=== PATIENT | female | born 1945 | race Caucasian/White ===

== ENCOUNTER → 2018-05-02 07:48 | Outpatient (CLI) | payer OTHER, MEDICARE, SELFPAY ==
--- NOTE | 2018-05-02 07:51 | BI_ITS ---
MAMMOGRAPHY - BILATERAL SCREENING REASON FOR EXAM: Female, 73 years old. Routine annual screening examination. PERTINENT HISTORY: Non-contributory. TECHNIQUE: Digital bilateral breast monique (3D mammographic acquisition) in the CC and MLO projections. 2-D mediolateral oblique (MLO) and craniocaudad (CC) views of both breasts were obtained. CAD: Full Field Digital Mammography with Computer Added Detection was performed. COMPARISON: Comparison is made with prior study dated April 04, 2017 and January 09, 2015. FINDINGS: Breast Composition: There are scattered areas of fibroglandular density. There are no dominant masses or suspicious calcifications. No other significant abnormalities are identified. There has been no significant change since the prior study. BI/SCREENING MAMM (CAD), BILAT IMPRESSION: Stable bilateral screening mammogram. Yearly follow-up mammogram recommended. (A) ASSESSMENT CATEGORY: BIRADS Category 1: Negative. A letter regarding these results will be sent to the patient by the facility within 30 days. Approximately 10% of breast cancers are not detected by mammography. A normal mammogram should not delay biopsy of a clinically suspicious abnormality. [id number] Electronically Signed: Jorge Keene MD at 9:05 EDT Tel [phone], Service support ,
== END ==
PROVIDERS: Family Provider Family Medicine; PCP Family Medicine; Visit Provider Family Medicine
DX: Z12.31 Encounter for screening mammogram for malignant neoplasm of breast (principal)
CPT/HCPCS: 77063; 77067

== ENCOUNTER 2018-12-12 10:54 | Day surgery (SDC) | payer OTHER, MEDICARE, SELFPAY ==
--- NOTE | 2018-12-06 11:36 | EKG12_ITS ---
Test Reason : PREOP Blood Pressure : / mmHG Vent. Rate : 064 BPM Atrial Rate : 064 BPM P-R Int : 160 ms QRS Dur : 070 ms QT Int : 446 ms P-R-T Axes : 076 051 073 degrees QTc Int : 460 ms Sinus rhythm with marked sinus arrhythmia with occasional Premature ventricular complexes Otherwise normal ECG Confirmed by CECILLE CARTER, ADDIE ([id number]), deputy editor in chief FITO MANCINI ([id number]) on 12/11/2018 1:43:32 PM Referred By: Bhavna Barnhart Confirmed By:ADDIE ODEN MD
--- NOTE | 2018-12-06 12:33 | PCM.HPOB.BLA ---
History and Physical Date of Admission: 12/06/18 Name: ESTUARDO GARCIA Age: 73 HISTORY OF PRESENT ILLNESS: On 12/06/2018, Estuardo Garcia, a 73 year old female 2 0 0 0 2, presented for: -- Pre-Op Estuardo is here today for her pre op appointment. Patient is scheduled for anterior repair 12/12/2018. States that she has had PAT phone call from the hospital yesterday and will plan to have labs done today. Consents reviewed with patient and signed. jlb As above. Here for preop appt prior to planned anterior repair for apical cystocele. She is doing well. States she had phone PAT appt yesterday and they recommended an EKG Plans to go to [facility] for labs and EKG today. Prior hysterectomy. Has questions about return to usual activity. EB ALLERGIES: No Known Drug Allergies MEDICATIONS HISTORY: none. REVIEW OF SYSTEMS: GENERAL - Denies fever, or chills SKIN - Denies skin changes EYES - Denies visual changes EARS - Denies difficulty hearing NOSE - Denies nasal congestion or bleeding MOUTH - Denies sore throat or difficulty swallowing NECK - Denies pain or swelling RESPIRATORY - Denies shortness of breath or wheezing CARDIOVASCULAR - Denies palpitations or chest pain GASTROINTESTINAL - Denies nausea, vomiting, diarrhea, constipation GENITOURINARY - Denies dysuria, frequency of urination, incontinence of urine MUSCULOSKELETAL - Denies joint or muscle pain NEUROLOGICAL - Denies localized numbness or weakness PSYCHIATRIC - Denies depression or anxiety ENDOCRINE - Denies heat or cold intolerance, weight loss or gain HEMATO-IMMUNOLOGIC - Denies excessive bleeding with cuts PAST HISTORY: Breast/Ovarian/Colon Cancers - Denies Infections - Chicken pox and Measles Illnesses - Back pain Accidents - fell and had compression fx 2014? History of Abnormal PAPS - YES, cervical cancer-hysterectomy done Hospitalizations - see surgery SURGICAL HISTORY: 1. Hyst, for cervical cancer 2. Renal calculi surgery x2 MENSTRUAL HISTORY: LMP Known?- Prior Hysterectomy, Age Onset Menarche - 12 PAST PREGNANCIES: Total Pregnancies - 2; Full Term Pregnancies - 2; Premature - 0; Abortions, Induced - 0; Abortions, Spontaneous - 0; Ectopics - 0; Multiple Births - 0; Living Children - 2 FAMILY HISTORY: Father - Alzheimer's disease; Mother - Stroke; Brother - Neoplasm of lung; SOCIAL HISTORY: Alcohol Use - denies drinking Smoking - denies smoking Diet - moderate, balanced diet Lifestyle - Exercise - active Seat Belt Use - always Employer - [employer] Illicit Drug Use - denies use of street drugs Sexual Activity - Spouse-Sig Other Name - Sudha Spouse-Sig Other Occupation - [employer] Control - hyst PHYSICAL EXAMINATION BP- 124/78 Sitting, Right arm, regular cuff Temp- 97.9 Taken Orally Weight- 113.00 lbs Height- 58.00 inch BMI:23.67 CONSTITUTIONAL - NAD, well nourished, and well developed HEENT - Normocephalic, PERRLA, EOMI NECK - no nuchal rigidity LUNGS - clear to auscultation CARDIAC - normal s1, normal s2, no s3 EXTREMITIES - No edema or calf tenderness NEUROLOGICAL - Cranial nerves II-XII grossly intact PSYCHIATRIC - A and O to time, place, person, mood and affect DETAILED PELVIC EXAM External Genitial Vagina - non-tender without lesions Urethra/Urethral Meatus - non-tender, small urethral caruncle noted atrophic changes and UVJ appears well supported. Bladder - non-tender Vagina - pale pink with atrophic changes noted. anterior vaginal wall with apical cystocele. Cervix - surgically absent Uterus - surgically absent Adnexa - clear without massess or tenderness ASSESSMENT: 1. Cystocele, Unspecified 2. Routine Gynecologic Exam no abnormal findings PLAN BY DIAGNOSIS: 1. Cystocele, Unspecified Apical cystocele noted, midline. Good support of UVJ Small urethral caruncle. reviewed findings and options for additional treatment. Plans anterior repair. Reviewed R,B,A, Discussed anticipated preop, operative and postop recovery including activity restrictions. All questions answered and consents signed and on chart. PAT next. RTO in 2 wk for initial postop check.
[2018-12-12] VITALS (10 sets, daily range): BP systolic 96–176; BP diastolic 54–92; PULSE 62–78; RESP 16–18; TEMP 36.3–37.1; O2SAT 96–100; BMI 22.4; BMI 22.1
--- NOTE | 2018-12-12 12:33 | PCM.DC ---
- Discharge Diagnoses Current Active Problems: cystocele Reason(s) for Visit for Discharge Instructions: Anterior repair (cystocele repair) You will use the following diet at home:: No restrictions Discharge Activity: May not drive while taking narcotic pain medications., May Shower, May Take a Tub Bath Return to work on:: 01/14/19 May resume sexual activity in: 4-6 weeks Lifting Restrictions: limit lifting to under 20# for 4-6 wk to allow healing Additional Activity Instructions:: You may resume walking, stairs, sedentary work as comfortable. Be sure to move frequently in the first week to prevent blood clots in your legs after surgery. You may take Tylenol for milder pain, Add OxyIR if pain is more severe. You may also take either two Aleve or three Ibuprofen every 8 hrs for pain. Call your doctor if you observe: Fever of 101 or Higher, Using more than one pad per hour, Shortness of breath, Calf discomfort, Uncontrolled pain Allergies/Adverse Reactions: Allergies No Known Allergies Allergy (Verified 12/05/18 08:50) Medications to take at Discharge Calcium (Elemental) [Os-Gurdeep 500] 1,500 mg PO TID 05/07/14 Multivit-Min/FA/Lycopene/Lut [Centrum Silver Tablet] 1 each PO DAILY 05/07/14 Cholecalciferol (Vitamin D3) [Vitamin D3] 2,000 unit PO BID 12/05/18 Omeg3/Dha/Epa/Fish Oil/L.casei [Restora Capsule] 1 each PO DAILY 12/05/18 Oxycodone [Oxyir] 5 mg PO Q6H PRN PRN 3 Days #10 tablet 12/12/18 The following prescriptions were given: Oxycodone [Oxyir] 5 mg PO Q6H PRN PRN 3 Days #10 tablet PRN Reason: Mod-Severe Pain (4-05/16) Primary Care Physician: Quyen Adrian MD [Primary Care Provider] - Test Results: Test results from this visit will be discussed in further detail at your follow-up appointment, if applicable. Please Follow Up With: Bhavna Barnhart MD - [phone] When: 2 wk for postoperative check up Proposed Discharge Date: 12/13/18
--- NOTE | 2018-12-12 12:38 | DCINST_ITS ---
- Discharge Diagnoses Current Active Problems: cystocele Reason(s) for Visit for Discharge Instructions: Anterior repair (cystocele repair) You will use the following diet at home:: No restrictions Discharge Activity: May not drive while taking narcotic pain medications., May Shower, May Take a Tub Bath Return to work on:: 01/14/19 May resume sexual activity in: 4-6 weeks Lifting Restrictions: limit lifting to under 20# for 4-6 wk to allow healing Additional Activity Instructions:: You may resume walking, stairs, sedentary work as comfortable. Be sure to move frequently in the first week to prevent blood clots in your legs after surgery. You may take Tylenol for milder pain, Add OxyIR if pain is more severe. You may also take either two Aleve or three Ibuprofen every 8 hrs for pain. Call your doctor if you observe: Fever of 101 or Higher, Using more than one pad per hour, Shortness of breath, Calf discomfort, Uncontrolled pain Allergies/Adverse Reactions: Allergies No Known Allergies Allergy (Verified 12/05/18 08:50) Medications to take at Discharge Calcium (Elemental) [Os-Gurdeep 500] 1,500 mg PO TID 05/07/14 Multivit-Min/FA/Lycopene/Lut [Centrum Silver Tablet] 1 each PO DAILY 05/07/14 Cholecalciferol (Vitamin D3) [Vitamin D3] 2,000 unit PO BID 12/05/18 Omeg3/Dha/Epa/Fish Oil/L.casei [Restora Capsule] 1 each PO DAILY 12/05/18 Oxycodone [Oxyir] 5 mg PO Q6H PRN PRN 3 Days #10 tablet 12/12/18 The following prescriptions were given: Oxycodone [Oxyir] 5 mg PO Q6H PRN PRN 3 Days #10 tablet PRN Reason: Mod-Severe Pain (4-05/16) Primary Care Physician: Quyen Adrian MD [Primary Care Provider] - Test Results: Test results from this visit will be discussed in further detail at your follow- up appointment, if applicable. Please Follow Up With: Bhavna Barnhart MD - [phone] When: 2 wk for postoperative check up Proposed Discharge Date: 12/13/18
--- NOTE | 2018-12-12 13:18 | PCM.OPRPT ---
Report of Operation Date of Procedure: 12/12/18 Pre-Operative Diagnosis: cystocele Post-Operative Diagnosis: same Surgery/Procedure Performed:: anterior repair Description of Surgical Findings:: On exam under anesthesia. A mild apical cystocele was noted. Good support of the UVJ was noted. Prior hysterectomy. Good support at perineum and no rectocele or enterocele was noted. overhead crane inspector: Vania - Sierra Irby RN second assist overhead crane inspector: Gwendolyn Loera overhead crane inspector: Type of Anesthesia:: General Anesthesiologist: Miguel Ny Specimen's removed: vaginal epithelium Drains: Gallo Estimated Blood Loss (mL): 100 cc Fluids Replaced: LR Description of Procedure: Narrative account: After the risks, benefits and alternatives of the procedure were reviewed with the patient , informed consent was obtained. The patient was taken to the Operative room with an IV running . She was positioned in the dorsal supine position on the operating table and given general anesthesia. Once asleep she was positioned to the dorsal lithotomy position and prepped and draped in the usual sterile fashion. A Gallo catheter was inserted to drain the bladder and left open to drain in the drape. The weighted speculum was placed into the vagina and allis clamps were used to grasp the anterior vaginal mucosa at the vaginal angles. The vaginal mucosa was dissected from from the underlying pubovesical cervical fascia from the vaginal cuff to a point approximately 1 cm away from the urethra. Emma plication stitches of 1 Vicryl were placed, reducing the small cystocele. The anterior vaginal mucosa was trimmed and the anterior vaginal incision was then repaired with interrupted stitches of 2-0 chromic. Excellent hemostasis was noted. A vaginal packing was then inserted: 1 iodoform gauze Excellent hemostasis was noted. The Gallo was attached to the Gallo bag and clear yellow urine returned. The patient was returned to dorsal supine position and awakened from general anesthesia. She was then transferred to the recovery room bed in stable condition after tolerating the procedure well. Sponge, lap, needle and instrument counts were correct times two. Medications given preop and intraoperatively included: Cefotetan IV given manager of exhibitions and collections to the operating room . For a complete listing of medications given preop and intraoperatively, please see the anesthesia record. - Complications None - Admit VTE Documentation VTE Present on Admission: No VTE Mechan Device Prophylaxis: SCD's VTE Pharm Prophylaxis ordered?: Yes
--- NOTE | 2018-12-12 13:21 | OP.PCM_ITS ---
Report of Operation Date of Procedure: 12/12/18 Pre-Operative Diagnosis: cystocele Post-Operative Diagnosis: same Surgery/Procedure Performed:: anterior repair Description of Surgical Findings:: On exam under anesthesia. A mild apical cystocele was noted. Good support of the UVJ was noted. Prior hysterectomy. Good support at perineum and no rectocele or enterocele was noted. vocational evaluator: Vania - Sierra Irby RN second assist vocational evaluator: Gwendolyn Loera vocational evaluator: Type of Anesthesia:: General Anesthesiologist: Miguel Ny Specimen's removed: vaginal epithelium Drains: Gallo Estimated Blood Loss (mL): 100 cc Fluids Replaced: LR Description of Procedure: Narrative account: After the risks, benefits and alternatives of the procedure were reviewed with the patient , informed consent was obtained. The patient was taken to the Operative room with an IV running . She was positioned in the dorsal supine position on the operating table and given general anesthesia. Once asleep she was positioned to the dorsal lithotomy position and prepped and draped in the usual sterile fashion. A Gallo catheter was inserted to drain the bladder and left open to drain in the drape. The weighted speculum was placed into the vagina and allis clamps were used to grasp the anterior vaginal mucosa at the vaginal angles. The vaginal mucosa was dissected from from the underlying pubovesical cervical fascia from the vaginal cuff to a point approximately 1 cm away from the urethra. Emma plication stitches of 1 Vicryl were placed, reducing the small cystocele. The anterior vaginal mucosa was trimmed and the anterior vaginal incision was then repaired with interrupted stitches of 2-0 chromic. Excellent hemostasis was noted. A vaginal packing was then inserted: 1 iodoform gauze Excellent hemostasis was noted. The Gallo was attached to the Agllo bag and clear yellow urine returned. The patient was returned to dorsal supine position and awakened from general anesthesia. She was then transferred to the recovery room bed in stable condition after tolerating the procedure well. Sponge, lap, needle and instrument counts were correct times two. Medications given preop and intraoperatively included: Cefotetan IV given ship construction teacher to the operating room . For a complete listing of medications given preop and intraoperatively, please see the anesthesia record. - Complications None - Admit VTE Documentation VTE Present on Admission: No VTE Mechan Device Prophylaxis: SCD's VTE Pharm Prophylaxis ordered?: Yes
[2018-12-12] MEDS: Lactated Ringers 1,000 ML 125 ML IV ×2 (14:18→22:01)
[2018-12-12] MEDS: Acetaminophen 500 MG Tablet 1000 MG PO (15:32)
[2018-12-12] MEDS: Calcium (Elemental) 500 MG Tablet PO (18:48)
--- NOTE | 2018-12-12 20:59 | PCM.PROGNOTE ---
Subjective: Day of Surgery Anterior repair Up in chair. States minimal pain Took tylenol earlier. Reading paper, doing incentive spirometer. NAD - Physical Exam General: Alert, Oriented x3, Cooperative, No apparent distress HEENT: Atraumatic Neck: Supple Psych/Mental Status: Normal Affect Vital Signs Temp Pulse Resp BP Pulse Ox 98.8 F 69 16 110/56 L 100 12/12/18 20:00 12/12/18 20:00 12/12/18 20:00 12/12/18 20:00 12/12/18 20:00 Oxygen Delivery Method Room Air Weight: 49.759 kg Body Mass Index (BMI) 22.1 Intake and Output for Last 24 Hours 12/10/18 12/11/18 12/12/18 23:59 23:59 23:59 Intake Total 2020 / 2020 Output Total 1700 / 1700 Balance 321 / 321 Medical Necessity - Tobacco Use Smoking Status: Never smoker Tobacco Use: Non-smoker Assessment/Plan All Active Problems Screening for intestinal cancer (Acute) Day of surgery Anterior repair. Stable postop Continue care. vaginal packing in place, to be removed tomorrow. Plan to d/c [place] after vaginal packing removed.
[2018-12-13 02:20] VITALS: BP 147/89; PULSE 72; RESP 14; TEMP 36.7; O2SAT 96
[2018-12-13] MEDS: 0.9% NaCl Peripheral Flush Adult/Peds IV (02:24)
[2018-12-13] MEDS: Acetaminophen 500 MG Tablet 1000 MG PO (03:34)
--- NOTE | 2018-12-13 04:50 | PCM.PROGNOTE ---
Subjective: POD#1 Anterior repair Doing well. Poor sleep as another patient up frequently and talking. Pain control adequate. No concerns voiced. - Physical Exam General: Alert, Oriented x3, Cooperative, No apparent distress HEENT: Atraumatic, PERRLA, EOMI Neck: Supple Abdomen: Soft, Non Tender - vaginal packing removed. Minimal old dischg Extremities: No clubbing, No cyanosis, No edema Psych/Mental Status: Normal Affect Vital Signs Temp Pulse Resp BP Pulse Ox 98.1 F 72 14 147/89 H 96 12/13/18 02:20 12/13/18 02:20 12/13/18 02:20 12/13/18 02:20 12/13/18 02:20 Oxygen Delivery Method Room Air Weight: 49.759 kg Body Mass Index (BMI) 22.1 Intake and Output for Last 24 Hours 05//19 12/12/12/13/18 23:59 23:59 23:59 Intake Total 2020 / 2020 1202 / 1202 Output Total 1700 / 1700 1300 / 1300 Balance 321 / 321 -98 / -98 Medical Necessity - Tobacco Use Smoking Status: Never smoker Tobacco Use: Non-smoker Assessment/Plan All Active Problems Screening for intestinal cancer (Acute) POD#1 Anterior repair. Stable postop packing removed and minimal old blood noted. Gallo removed, voiding trial. Dischg home today.
[2018-12-13 05:54] LABS: Hemoglobin 12.1 g/dl (12.0-15.0); Mean Corp Hgb Conc 33.6 g/gl (32-36); Mean Corpuscular Hgb 29.2 pg (27.0-32.0); Mean Corpuscular Volume 86.7 fL (81-99); Platelet Count 168 K/mm3 (150-450); RBC Distribution Width CV 13.2 % (11.6-14.6); Red Blood Count 4.15 M/mm3 (4.2-5.4); White Blood Count 6.8 K/mm3 (4.4-11.0)
[2018-12-13 06:00] LABS: Scan Indicated on CBC? Y/N NO
[2018-12-13 07:59] VITALS: O2SAT 96
[2018-12-13 08:01] VITALS: BP 107/65; PULSE 68; RESP 16; TEMP 36.8; O2SAT 96
== END 2018-12-13 08:05 | disposition home or self-care (01) ==
LOC: SDC 10:55 → AC 10:56 → MS3 13:15
PROVIDERS: Family Provider Family Medicine; PCP Family Medicine; Referring Provider Obstetrics & Gynecology; Visit Provider Obstetrics & Gynecology
PROC: (CPT 57240; principal; 2018-12-12 12:15)
DX: N81.11 Cystocele, midline (principal); Z90.710 Acquired absence of both cervix and uterus
CPT/HCPCS: 57240; 36415; 85027; 93005; J7120; A4216; J2405

== ENCOUNTER → 2019-02-01 07:43 | Outpatient (CLI) | payer OTHER, MEDICARE, SELFPAY ==
[2018-12-12 14:41] VITALS: BMI 22.1
== END ==
LOC: LAB 07:46 → LABSPEC 07:47
PROVIDERS: Family Provider Family Medicine; PCP Family Medicine; Referring Provider Internal Medicine; Visit Provider Internal Medicine
DX: R19.7 Diarrhea, unspecified (principal)
CPT/HCPCS: 87177; 87209; 87493; 87506

== ENCOUNTER → 2019-04-22 16:34 | Outpatient (CLI) | payer OTHER, MEDICARE, SELFPAY ==
[2019-04-22 13:54] VITALS: BMI 22.1
--- NOTE | 2019-04-22 14:30 | LES_PTH ---
PATIENT: ESTUARDO GARCIA JANUARY LOC: [facility] U#:[id number] AGE/SX: 80/F ROOM: RE04/22/[address]: Dr. Mika Keating MD : [id number] BED: DIS: SPEC #: [id number] RECD: 04/22/19 14:57 STATUS: [place] JOSE L #: [id number] JULIO: 04/22/19 14:[address]: Mika Keating DEPT: SURGICAL PATHOLOGY RECD BY: Sameer Cornejo ENTERED: 04/23/19 11:31 SP TYPE: Lesion OTHR DR: Dr. Quyen Adrian MD Tissues: Skin of back, NOS Procedures: Surgery Specimen Level IV HEADER OPERATION: Shave biopsy skin lesion back PRE-OP DIAGNOSIS: Skin lesion back TISSUE SUBMITTED: Skin lesion mid left back MICROSCOPIC DIAGNOSIS Skin lesion mid back, biopsy: Fragments of superficial seborrheic keratosis. AM:jonathan 04/24/19 MICROSCOPIC DESCRIPTION Slides are reviewed. GROSS DESCRIPTION Received in fixative is one container labeled with the patient's name and designated skin lesion of mid left buttock. The specimen consists of multiple irregular fragments of light siddiqui soft tissue that in aggregate measure 0.5 x 0.5 x 0.2 cm. The specimen is totally submitted in one cassette. / AM:jonathan 04/23/19 TC:5 CPT: 11954
== END ==
PROVIDERS: Family Provider Family Medicine; PCP Family Medicine; Referring Provider Surgery; Visit Provider Surgery
DX: L98.9 Disorder of the skin and subcutaneous tissue, unspecified (principal)
CPT/HCPCS: 88305

== ENCOUNTER → 2019-05-20 10:19 | Outpatient (CLI) | payer OTHER, MEDICARE, SELFPAY ==
[2019-04-22 13:54] VITALS: BMI 22.1
--- NOTE | 2019-05-20 10:23 | BI_ITS ---
MAMMOGRAPHY - BILATERAL SCREENING REASON FOR EXAM: Female, 74 years old. Routine annual screening examination. PERTINENT HISTORY: Non-contributory. TECHNIQUE: Digital bilateral breast kofi (3D mammographic acquisition) in the CC and MLO projections. 2-D mediolateral oblique (MLO) and craniocaudad (CC) views of both breasts were obtained. CAD: Full Field Digital Mammography with Computer Added Detection was performed. COMPARISON: Comparison is made with prior study dated May 02, 2018 and March 25, 2017. FINDINGS: Breast Composition: There are scattered areas of fibroglandular density. There are no dominant masses or suspicious calcifications. No other significant abnormalities are identified. There has been no significant change since the prior study. BI/SCREEN MAMM (CAD) W/KOFI BILAT IMPRESSION: Stable bilateral screening mammogram. Yearly follow-up mammogram recommended. (A) ASSESSMENT CATEGORY: BIRADS Category 1: Negative. A letter regarding these results will be sent to the patient by the facility within 30 days. Stat report Approximately 10% of breast cancers are not detected by mammography. A normal mammogram should not delay biopsy of a clinically suspicious abnormality. [id number] Electronically Signed: Jorge Keene, at 11:28 EDT , Service support ,
== END ==
PROVIDERS: Family Provider Family Medicine; PCP Family Medicine; Referring Provider Family Medicine; Visit Provider Family Medicine
DX: Z12.31 Encounter for screening mammogram for malignant neoplasm of breast (principal)
CPT/HCPCS: 77063; 77067

== ENCOUNTER → 2019-10-11 11:17 | Outpatient (CLI) | payer MEDICARE, OTHER, SELFPAY ==
[2019-04-22 13:54] VITALS: BMI 22.1
[2019-10-11 12:50] LABS: Cholesterol 237 mg/dL (200); High Density Lipoprotein 114 mg/dL; Triglycerides 77 mg/dL; Very Low Density Lipoprotein 15 mg/dL (5-40)
== END ==
PROVIDERS: PCP Family Medicine; Referring Provider Family Medicine; Visit Provider Family Medicine
DX: E78.00 Pure hypercholesterolemia, unspecified (principal)
CPT/HCPCS: 36415; 80061

== ENCOUNTER → 2019-12-10 09:39 | Outpatient (CLI) | payer MEDICARE, OTHER, SELFPAY ==
[2019-04-22 13:54] VITALS: BMI 22.1
--- NOTE | 2019-12-10 09:47 | BD_ITS ---
STUDY: DUAL ENERGY X-RAY ABSORPTIOMETRY / DXA REASON FOR EXAM: Female, 74 years old. HUMAN RESOURCES HR GENERALIST- SURGICAL EARLY AT 33 YRS OLD D/T CERVICAL CANCER -- TAKES 1500MG CALCIUM + MULTIVITAMIN -- HX OF TAKING PROLIA -- DOES HIGH AMOUNT OF EXERCISE -- FAMILY HX OF OSTEO- AUNT -- HX OF COMPRESSION FX -- HUSAM OF 3-4 INCHES TECHNIQUE: Bone Mineral Density (BMD) measurements of lumbar spine and bilateral hips were obtained. COMPARISON: None. FINDINGS: Lumbar Spine (L1-L4): g/cm2 (1.008) / T-score (-1.6) / Z-score (0.2) Findings are suggestive of osteopenia with a moderate fracture risk. Left Femur Total: g/cm2 (0.705) / T-score (-2.4) / Z-score (-0.6) Left Femoral Neck: g/cm2 (0.639) / T-score (-2.9) / Z-score (0.9) Right Femur Total: g/cm2 (0.657) / T-score (-2.8) / Z-score (-1.0) Right Femoral Neck: g/cm2 (0.664) / T-score (-2.7) / Z-score (-0.7) BD/Dexa Bone Density Study IMPRESSION: The patient is considered osteoporotic as outlined below according to World Johnathan Organization (WHO) criteria with a high fracture risk. Reference Information: The T-score is the number of standard deviations above or below the standard which is normal for young adults at their peak bone mineral density. The World Health Organization (WHO) interprets the T-scores as follows: Above -1 Normal bone density Between -1 and -2.5 Osteopenia Equal to / or below -2.5 Osteoporosis As a practical clinical guideline, osteopenia may be graded as follows: Mild -1 through -1.5 Moderate -1.6 through -2.0 Severe -2.1 through -2.4 The Z-score is the number of standard deviations above or below age-matched controls. A Z-score of less than -1.5 would be considered abnormal. References: 1. NIH Osteoporosis and Related Bone Diseases http://www.osteo.org 2. International Society for Clinical Densitometry http://www.iscd.org 3. National Osteoporosis Foundation http://www.nof.org Electronically Signed: Jorge Keene, at 12:29 EDT , Service support ,
== END ==
PROVIDERS: PCP Family Medicine; Referring Provider Family Medicine; Visit Provider Family Medicine
DX: M81.0 Age-related osteoporosis without current pathological fracture (principal)
CPT/HCPCS: 77080

== ENCOUNTER → 2020-05-26 10:25 | Outpatient (CLI) | payer MEDICARE, OTHER, SELFPAY ==
[2019-04-22 13:54] VITALS: BMI 22.1
--- NOTE | 2020-05-26 10:27 | BI_ITS ---
MAMMOGRAPHY - BILATERAL SCREENING REASON FOR EXAM: Female, 75 years old. Routine annual screening examination. PERTINENT HISTORY: Non-contributory. TECHNIQUE: Digital bilateral breast kofi (3D mammographic acquisition) in the CC and MLO projections. 2-D mediolateral oblique (MLO) and craniocaudad (CC) views of both breasts were obtained. CAD: Full Field Digital Mammography with Computer Added Detection was performed. COMPARISON: Comparison is made with prior study dated 05/20/2019 and 05/02/2018. FINDINGS: Breast Composition: There are scattered areas of fibroglandular density. There are no dominant masses or suspicious calcifications. No other significant abnormalities are identified. There has been no significant change since the prior study. BI/SCREEN MAMM (CAD) W/KOFI BILAT IMPRESSION: Stable bilateral screening mammogram. Yearly follow-up mammogram recommended. (A) ASSESSMENT CATEGORY: BIRADS Category 1: Negative. A letter regarding these results will be sent to the patient by the facility within 30 days. Approximately 10% of breast cancers are not detected by mammography. A normal mammogram should not delay biopsy of a clinically suspicious abnormality. [id number] Electronically Signed: Jorge Keene, at 11:13 EDT , Service support ,
== END ==
PROVIDERS: PCP Family Medicine; Referring Provider Family Medicine; Visit Provider Family Medicine
DX: Z12.31 Encounter for screening mammogram for malignant neoplasm of breast (principal)
CPT/HCPCS: 77063; 77067

== ENCOUNTER → 2021-06-01 11:17 | Outpatient (CLI) | payer MEDICARE, OTHER, SELFPAY ==
--- NOTE | 2021-06-01 11:21 | BI_ITS ---
MAMMOGRAPHY - BILATERAL SCREENING REASON FOR EXAM: Female, 76 years old. Routine annual screening examination. PERTINENT HISTORY: Non-contributory. TECHNIQUE: Digital bilateral breast kofi (3D mammographic acquisition) in the CC and MLO projections. 2-D mediolateral oblique (MLO) and craniocaudad (CC) views of both breasts were obtained. CAD: Full Field Digital Mammography with Computer Added Detection was performed. COMPARISON: Comparison is made with prior study 05/26/2020 and 05/20/2019. FINDINGS: Breast Composition: There are scattered areas of fibroglandular density. There are no dominant masses or suspicious calcifications. No other significant abnormalities are identified. There has been no significant change since the prior study. BI/SCRN MAMM (CAD)W/KOFI BILAT IMPRESSION: Stable bilateral screening mammogram. Yearly follow-up mammogram recommended. (A) ASSESSMENT CATEGORY: BIRADS Category 1: Negative. A letter regarding these results will be sent to the patient by the facility within 30 days. Approximately 10% of breast cancers are not detected by mammography. A normal mammogram should not delay biopsy of a clinically suspicious abnormality. [id number] Electronically Signed: Jorge Keene MD at 9:25 EDT , Service support ,
== END ==
PROVIDERS: PCP Family Medicine; Referring Provider Family Medicine; Visit Provider Family Medicine
DX: Z12.31 Encounter for screening mammogram for malignant neoplasm of breast (principal)
CPT/HCPCS: 77063; 77067

== ENCOUNTER 2021-11-10 08:49 | Outpatient (CLI) | payer MEDICARE, OTHER, SELFPAY ==
--- NOTE | 2021-11-10 08:56 | CDU_ITS ---
Reason For Study: Other specified symptoms and signs involving the circulatory and respiratory systems Rt. Velocities/BP Lt. Velocities/BP Prox CCA 61.7/12.1 cm/sec. Prox CCA 68.2/13.4 cm/sec. Mid CCA 70.8/13.4 cm/sec. Mid CCA 70.8/17.3 cm/sec. Dist CCA 57.8/13.4 cm/sec. Dist CCA 63/17.3 cm/sec. Prox ICA 48.6/12.1 cm/sec. Prox ICA 38.8/10.2 cm/sec. Mid ICA 56.5/17.3 cm/sec. Mid ICA 59.7/17.9 cm/sec. Dist ICA 66.9/20 cm/sec. Dist ICA 90.4/32.2 cm/sec. Rt. ICA/CCA = 1.08. Lt. ICA/CCA = 1.33. Prox ECA 53.9/9.5 cm/sec. Prox ECA 57.8/10.8 cm/sec. Rt. Vert. 49.9/10.8 cm/sec. Lt. Vert. 54.2/14.6 cm/sec. Right Extracranial There is homogeneous, smooth atherosclerotic plaque noted in the right common carotid artery. There is homogeneous, smooth atherosclerotic plaque noted in the right internal carotid artery. There is heterogeneous, irregular atherosclerotic plaque noted in the right external carotid artery. Antegrade flow is noted in the right vertebral artery. Left Extracranial There is homogeneous, smooth atherosclerotic plaque noted in the left common carotid artery. There is intimal thickening but no significant atherosclerotic plaque noted in the left internal carotid artery. There is intimal thickening but no significant atherosclerotic plaque noted in the left external carotid artery. Antegrade flow is noted in the left vertebral artery. Procedure Carotid Duplex [id number]. This is a Carotid Duplex examination using B-mode, color flow and specral Doppler. Exam performed in department. VL/Carotid Duplex Ultrasound Interpretation Summary Smooth plaque of the proximal right internal carotid artery with less than 50% stenosis Less than 50% stenosis right external carotid artery Intimal thickening of the left internal carotid artery with less than 50% steno sis Less than 50% stenosis left external carotid artery Patent antegrade vertebral arteries bilaterally Ordering Physician: Quyen Adrian Referring Physician: Quyen Adrian M.D. Performed By: Brook Saucedo RVT
== END 2021-11-10 23:59 | disposition home or self-care (01) ==
PROVIDERS: PCP Family Medicine; Visit Provider Family Medicine
DX: R09.89 Other specified symptoms and signs involving the circulatory and respiratory systems (principal)
CPT/HCPCS: 93880

== ENCOUNTER → 2021-12-06 | Outpatient (CLI) | payer MEDICARE, OTHER, SELFPAY ==
--- NOTE | 2021-12-06 11:46 | RAD_ITS ---
STUDY: X-RAY - THORACIC SPINE REASON FOR EXAM: Female, 76 years old. ACUTE MIDLINE THORACIC PAIN TECHNIQUE: view(s) of the thoracic spine were obtained. COMPARISON: None. FINDINGS: There is a compression fracture of L1 which is compressed 80%. There is a mild compression of T8 which is compressed 25%. The soft tissue structures are unremarkable. RAD/Thoracic Spine 2 Views IMPRESSION: There are compression fractures of L1 and T8. Electronically Signed: Darshan Pearson MD at 3:35 EDT ,
== END | disposition home or self-care (01) ==
LOC: MTRAD 11:45
PROVIDERS: PCP Family Medicine; Referring Provider Family Medicine; Visit Provider Family Medicine
DX: M54.6 Pain in thoracic spine (principal)
CPT/HCPCS: 72070

== ENCOUNTER → 2022-06-06 | Outpatient (CLI) | payer MEDICARE, OTHER, SELFPAY ==
--- NOTE | 2022-06-06 12:57 | BI_ITS ---
MAMMOGRAPHY - BILATERAL SCREENING REASON FOR EXAM: Female, 77 years old. Routine annual screening examination. PERTINENT HISTORY: Non-contributory. TECHNIQUE: Digital bilateral breast kofi (3D mammographic acquisition) in the CC and MLO projections. 2-D mediolateral oblique (MLO) and craniocaudad (CC) views of both breasts were obtained. CAD: Full Field Digital Mammography with Computer Added Detection was performed. COMPARISON: Comparison is made with prior examination 06/01/2021 and 05/26/2020. FINDINGS: Breast Composition: There are scattered areas of fibroglandular density. There are no dominant masses or suspicious calcifications. No other significant abnormalities are identified. There has been no significant change since the prior study. BI/SCRN MAMM (CAD)W/KOFI BILAT IMPRESSION: Stable bilateral screening mammogram. Yearly follow-up mammogram recommended. (A) ASSESSMENT CATEGORY: BIRADS Category 1: Negative. A letter regarding these results will be sent to the patient by the facility within 30 days. Approximately 10% of breast cancers are not detected by mammography. A normal mammogram should not delay biopsy of a clinically suspicious abnormality. [id number] Electronically Signed: Jorge Keene MD at 13:55 EDT ,
== END | disposition home or self-care (01) ==
LOC: OPBI 12:55
PROVIDERS: PCP Family Medicine; Referring Provider Family Medicine; Visit Provider Family Medicine
DX: Z12.31 Encounter for screening mammogram for malignant neoplasm of breast (principal)
CPT/HCPCS: 77063; 77067

== ENCOUNTER → 2023-06-19 | Outpatient (CLI) | payer MEDICARE, OTHER, SELFPAY ==
--- NOTE | 2023-06-19 10:58 | BI_ITS ---
MAMMOGRAPHY - BILATERAL SCREENING REASON FOR EXAM: Female, 78 years old. Routine annual screening examination. PERTINENT HISTORY: Non-contributory. TECHNIQUE: Digital bilateral breast kofi (3D mammographic acquisition) in the CC and MLO projections. 2-D mediolateral oblique (MLO) and craniocaudad (CC) views of both breasts were obtained. CAD: Full Field Digital Mammography with Computer Added Detection was performed. COMPARISON: Comparison is made with prior study of June 06, 2022 and June 01, 2021. FINDINGS: Breast Composition: There are scattered areas of fibroglandular density. There are no dominant masses or suspicious calcifications. No other significant abnormalities are identified. There has been no significant change since the prior study. BI/SCRN MAMM (CAD)W/KOFI BILAT IMPRESSION: Stable bilateral screening mammogram. Yearly follow-up mammogram recommended. (A) ASSESSMENT CATEGORY: BIRADS Category 1: Negative. A letter regarding these results will be sent to the patient by the facility within 30 days. Approximately 10% of breast cancers are not detected by mammography. A normal mammogram should not delay biopsy of a clinically suspicious abnormality. [id number] Electronically Signed: Jorge Keene MD at 13:25 EST ,
== END | disposition home or self-care (01) ==
LOC: OPBI 10:58
PROVIDERS: PCP Family Medicine; Referring Provider Family Medicine; Visit Provider Family Medicine
DX: Z12.31 Encounter for screening mammogram for malignant neoplasm of breast (principal)
CPT/HCPCS: 77063; 77067

== ENCOUNTER → 2024-05-29 | Outpatient (CLI) | payer MEDICARE, OTHER, SELFPAY ==
--- NOTE | 2024-05-29 16:19 | RAD_ITS ---
STUDY: X-RAY - RIGHT KNEE REASON FOR EXAM: Female, 79 years old. KNEE PAIN TECHNIQUE: 4 views of the right knee. COMPARISON: None. FINDINGS: Normal visualized distal femur. Normal visualized proximal tibia and fibula. Normal proximal tibiofibular articulation. There is no demonstrated fracture. Normal medial femorotibial compartment. There is minimal degenerative arthrosis of the lateral femorotibial compartment with minimal marginal osteophyte formation. Normal patellofemoral articulation. The soft tissue structures are unremarkable. 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 No demonstrated fracture. Electronically Signed: Cheko Salamanca MD at 14:25 EDT ,
== END | disposition home or self-care (01) ==
LOC: MTRAD 16:10
PROVIDERS: PCP Family Medicine; Referring Provider Family Medicine; Visit Provider Family Medicine
DX: M25.561 Pain in right knee (principal)
CPT/HCPCS: 73564

== ENCOUNTER → 2024-10-22 | Outpatient (CLI) | payer MEDICARE, OTHER, SELFPAY ==
[2024-10-22 19:12] LABS: Anion Gap 13 (5-15); BUN 20 mg/dL (4-19); BUN/Creat Ratio 19.8 RATIO (10-20); Calcium,Total 9.4 mg/dL (7.6-11.0); Carbon Dioxide 23.7 mmol/L (21.0-32.0); Chloride 101 mmol/L (98-108); Cholesterol 237 mg/dL (<=200); EST Glomerular Filtration Rate 57 (>60); Glucose 97 mg/dL (70-99); High Density Lipoprotein 109 mg/dL; Low Density Lipoprotein Calc. 115 mg/dL; Potassium 3.5 mmol/L (3.3-5.1); Sodium Level 138 mmol/L (133-145); Triglycerides 65 mg/dL; Very Low Density Lipoprotein 13 mg/dL (5-40); cholesterol:hdl ratio screen 2.17
== END | disposition home or self-care (01) ==
LOC: MFPLAB 11:51
PROVIDERS: PCP Family Medicine; Referring Provider Family Medicine; Visit Provider Family Medicine
DX: Z13.220 Encounter for screening for lipoid disorders (principal); Z13.1 Encounter for screening for diabetes mellitus; M81.0 Age-related osteoporosis without current pathological fracture
CPT/HCPCS: 36415; 80048; 80061; 84443

== ENCOUNTER → 2024-10-30 | Outpatient (CLI) | payer MEDICARE, OTHER, SELFPAY ==
--- NOTE | 2024-10-30 08:02 | BI_ITS ---
EXAM: SCRN MAMM (CAD)W/KOFI BILAT 10/30/2024 CLINICAL HISTORY: F, Age 79 y/o , SCREENING BREAST CANCER RISK ASSESSMENT: Has not been calculated. TECHNIQUE: Bilateral screening digital breast tomosynthesis with 2D images. Computer aided detection. COMPARISON: Prior exam(s) dated 06/19/2023 and 06/06/2022. FINDINGS: TISSUE DENSITY: The breast tissue is composed of scattered area of fibroglandular density. Bilateral Breast Mammographic Findings: There are no other dominant masses, areas of architectural distortion, or suspicious calcifications. Benign round microcalcifications and vascular calcifications are seen in the right breast. A stable 3 mm partially obscured isodense mass in the superior medial, middle 3rd aspect of the left breast is noted. A stable 4 mm nodular density is seen in the superior outer, middle 3rd aspect of the left breast. BI/SCRN MAMM (CAD)W/KOFI BILAT IMPRESSION: Right Breast: BIRADS 2 BENIGN FINDING. Left Breast: BIRADS 2 BENIGN FINDING. OVERALL FINAL ASSESSMENT: BIRADS 2 BENIGN FINDING RECOMMENDATION: Routine annual follow-up in 1 Year A letter with findings and recommendations will be mailed to the patient. Reading Location: [id number]
== END | disposition home or self-care (01) ==
LOC: OPBI 08:00
PROVIDERS: PCP Family Medicine; Referring Provider Family Medicine; Visit Provider Family Medicine
DX: Z12.31 Encounter for screening mammogram for malignant neoplasm of breast (principal)
CPT/HCPCS: 77063; 77067